=== PATIENT | male | born 1980 | race Caucasian/White ===

== ENCOUNTER → 2024-04-05 11:29 | Outpatient (CLI) | payer OTHER, SELFPAY ==
--- NOTE | 2024-04-05 11:31 | DI.RAD.S_ITS ---
PROCEDURE: XR FOOT LT MIN 3V INDICATIONS: Left foot pain TECHNIQUE: 3 views of the foot were acquired. COMPARISON: None. FINDINGS: Bones: No fractures or dislocations. No suspicious bony lesions. Soft tissues: No tibiotalar joint effusion. Achilles tendon appears normal. IMPRESSION: No acute bony abnormality. Dictated by: Tish Camp MD, PhD on 04/05/2024 at 11:42 Approved by: Tish Camp MD, PhD on 04/05/2024 at 11:43
== END ==
LOC: RAD 11:31
PROVIDERS: PCP Family Medicine; Referring Provider Physician Assistant Surgical; Visit Provider Physician Assistant Surgical
DX: M79.672 Pain in left foot (principal)
CPT/HCPCS: 73630